=== PATIENT | male | born 1940 | race Caucasian/White ===

== ENCOUNTER 2018-08-08 12:45 | Emergency (ER) | payer MEDICARE, OTHER ==
[~2018-08-08] VITALS: Ht 188 cm; Wt 89.4 kg
--- NOTE | 2018-08-08 13:00 | NUR ---
patient presented to the ER c/o irregular heart rated, on room air, denies any pain at this time. Kept comfortable, will continue to monitor accordingly. Connected to the monitor and pulse ox.
[2018-08-08] MEDS ORDERED: ASPIRIN 325 MG TABLET ONE (13:08)
[2018-08-08 13:09] LABS: BASOPHILS # (AUTO) 0.1 /CMM (0.0-0.2); BASOPHILS % (AUTO) 0.9 % (0.0-2.0); EOSINOPHILS % (AUTO) 2.1 % (0.0-6.0); HEMATOCRIT 43 % (39-51); HEMOGLOBIN 14.7 g/dL (13.5-17.5); LYMPHOCYTES # (AUTO) 1.6 /CMM (0.8-4.8); MEAN CORPUSCULAR HGB CONC 35 g/dl (31.0-36.0); MEAN CORPUSCULAR VOLUME 97 fL (80-96); MONOCYTES # (AUTO) 0.6 /CMM (0.1-1.30); MONOCYTES % (AUTO) 10.1 % (2.0-12.0); NEUTROPHILS # (AUTO) 3.7 /CMM (1.8-8.9); NEUTROPHILS % (AUTO) 60.9 % (43.0-81.0); PLATELET COUNT (AUTO) 242 /CMM (150-450); RED BLOOD CELL COUNT(AUTO) 4.39 MIL/uL (4.5-6.0); WHITE BLOOD COUNT (AUTO) 6.1 K/uL (4.3-11.0)
--- NOTE | 2018-08-08 13:13 | NUR ---
CALLED [facility] FOR TELE BED
--- NOTE | 2018-08-08 13:15 | NUR ---
iv access initiated and blood drawed and sent to lab.
[2018-08-08 13:17] LABS: CALCIUM, SERUM 8.9 mg/dL (8.5-10.1); CARBON DIOXIDE 30 mmol/L (21-32); CHLORIDE 107 mmol/L (98-107); CREATININE 1.2 mg/dL (0.6-1.3); GLUCOSE 169 mg/dL (74-106); POTASSIUM 4.6 mmol/L (3.5-5.1); SODIUM SERUM 141 mmol/L (136-145); UREA NITROGEN, BLOOD 19 mg/dL (7-18)
[2018-08-08 13:23] LABS: ALANINE AMINOTRANSFERASE 40 U/L (12-78); ALBUMIN 3.8 g/dL (3.4-5.0); ALKALINE PHOSPHATASE 101 U/L (46-116); ASPARTATE AMINOTRANSFERASE 30 U/L (15-37); BILIRUBIN,DIRECT 0.2 mg/dL (0.0-0.2); TOTAL PROTEIN, SERUM 3.8 g/dL (6.4-8.2)
[2018-08-08] MEDS ORDERED: ASPIRIN 325 MG TABLET PO ONE (13:30)
[2018-08-08] MEDS ORDERED: IV NS 0.9% 1,000 ML BAG IV ONE (13:30)
[2018-08-08 14:26] VITALS: BP 135/81
--- NOTE | 2018-08-08 14:27 | NUR ---
Patient does not wish to proceed with medical care recommended by Dr. García. Patient given information related to possible complications, up to and including , which could occur as a result of leaving the hospital at this time. Patient verbalizes understanding of risks involved due to leaving against medical advice. Patient has signed AMA form.
== END 2018-08-08 14:27 | disposition left against medical advice (07) ==
LOC: ER 12:45
DX: I48.91 Unspecified atrial fibrillation (principal); I10 Essential (primary) hypertension; E78.5 Hyperlipidemia, unspecified; J45.909 Unspecified asthma, uncomplicated; E11.9 Type 2 diabetes mellitus without complications; Z85.46 Personal history of malignant neoplasm of prostate; Z88.8 Allergy status to other drugs, medicaments and biological substances; Z98.890 Other specified postprocedural states
CPT/HCPCS: 36415; 71045; 80048; 80076; 83735; 84484; 85025; 93005; 99284; J7030

== ENCOUNTER 2023-01-10 18:38 | Inpatient (IN) | payer MEDICARE, OTHER ==
[~2023-01-10] VITALS: Ht 188 cm; Wt 83.5 kg
[2023-01-10] MEDS ORDERED: DILTIAZEM HCL 25 MG IV ONE (19:20)
[2023-01-10] MEDS ORDERED: BUDE10.2 IH (19:22)
[2023-01-10] MEDS ORDERED: LATA5DRO EACHEYE (19:22)
[2023-01-10] MEDS ORDERED: ATOR20TA PO (19:22)
[2023-01-10] MEDS ORDERED: APIX5TAB PO (19:22)
[2023-01-10] MEDS ORDERED: MULT-1201 PO (19:22)
[2023-01-10] MEDS ORDERED: NETA2.5D EACHEYE (19:22)
[2023-01-10] MEDS ORDERED: AFLI2SYR LEFTEYE (19:22)
[2023-01-10] MEDS ORDERED: GLIP-16 PO (19:22)
[2023-01-10] MEDS ORDERED: [UNRECOGNIZED DRUG - OTHER] PO (19:22)
[2023-01-10] MEDS ORDERED: SODI15OR5 PO (19:22)
[2023-01-10] MEDS ORDERED: BRIM5DRO2 EACHEYE (19:22)
[2023-01-10] MEDS ORDERED: METO50TA7 PO (19:22)
[2023-01-10] MEDS ORDERED: MULT-479 PO (19:22)
[2023-01-10] MEDS ORDERED: RANO500T3 PO (19:22)
[2023-01-10] MEDS ORDERED: IV NS 0.9% 1,000 ML IV ONE (19:30)
[2023-01-10] MEDS ORDERED: DILTIAZEM HCL 50 MG IV IV ONE (19:30)
[2023-01-10 19:38] LABS: BASOPHILS % (AUTO) 0.6 % (0.0-2.0); HEMATOCRIT 46 % (39-51); HEMOGLOBIN 15.7 g/dL (13.5-17.5); MEAN CORPUSCULAR HEMOGLOBIN 34 PG (26.0-33.0); MEAN CORPUSCULAR HGB CONC 34 g/dl (31.0-36.0); MEAN CORPUSCULAR VOLUME 98 fL (80-96); MONOCYTES # (AUTO) 0.5 K/uL (0.1-1.30); MONOCYTES % (AUTO) 7.3 % (2.0-12.0); NEUTROPHILS # (AUTO) 5.2 K/uL (1.8-8.9); NEUTROPHILS % (AUTO) 77.1 % (43.0-81.0); PLATELET COUNT (AUTO) 120 K/uL (150-450); RED BLOOD CELL COUNT(AUTO) 4.68 MIL/uL (4.5-6.0); RED CELL DISTRIBUTION WIDTH 13.8 % (11.5-15.0); WHITE BLOOD COUNT (AUTO) 6.8 K/uL (4.3-11.0)
[2023-01-10 19:44] LABS: CALCIUM, SERUM 8.9 mg/dL (8.5-10.1); CARBON DIOXIDE 25 mmol/L (21-32); CHLORIDE 102 mmol/L (98-107); CREATININE 1.4 mg/dL (0.6-1.3); GLUCOSE 153 mg/dL (74-106); POTASSIUM 3.6 mmol/L (3.5-5.1); SODIUM SERUM 139 mmol/L (136-145); UREA NITROGEN, BLOOD 18 mg/dL (7-18)
[2023-01-10 19:56] LABS: ALANINE AMINOTRANSFERASE 42 U/L (12-78); ALBUMIN 3.9 g/dL (3.4-5.0); ALKALINE PHOSPHATASE 114 U/L (46-116); ASPARTATE AMINOTRANSFERASE 31 U/L (15-37); BILIRUBIN,DIRECT 0.3 mg/dL (0.0-0.2); BILIRUBIN,TOTAL 0.8 mg/dL (0.2-1.0); NT-PRO BNP 1418 pg/mL (0-125); TOTAL PROTEIN, SERUM 8.4 g/dL (6.4-8.2)
[2023-01-10] MEDS ORDERED: DILTIAZEM HCL 30 MG TABLET ONE (19:57)
[2023-01-10] MEDS ORDERED: DILTIAZEM HCL 30 MG TABLET PO ONE (20:00)
[2023-01-10] MEDS ORDERED: Z GUARD REMEDY 4 OZ OINT TP PRN (22:30)
[2023-01-10] MEDS ORDERED: DEXTROSE 50%-WATER 50 ML DISP.SYRIN IV PRN (22:30)
[2023-01-10] MEDS ORDERED: ONDANSETRON HCL/PF 4 MG/2 ML VIAL IVP PRN (22:30)
[2023-01-10] MEDS ORDERED: ACETAMINOPHEN 325 MG TABLET PO PRN (22:30)
[2023-01-10] MEDS ORDERED: IV 1/2NS 1000 ML 1,000 ML IV PRN (22:30)
[2023-01-10] MEDS ORDERED: IPRATROPIUM NEB FS 0.5 MG/2.5 ML AMPUL.NEB NEB PRN (23:00)
[2023-01-10] MEDS ORDERED: predniSONE 50 MG TABLET PO SCH (23:00)
[2023-01-11] VITALS (9 sets, daily range): BP systolic 101–167; BP diastolic 68–106; TEMP 97.6–100.6; O2SAT 92–99
[2023-01-11] MEDS ORDERED: LEVOFLOXACIN 750 MG /D5W 150ML 750 MG in PREMIX 1 EA IV ONE (02:00)
[2023-01-11] MEDS ORDERED: LEVOFLOXACIN 750 MG /D5W 150ML 150 ML IV ONE (04:01)
[2023-01-11 06:31] LABS: BASOPHILS % (AUTO) 0.5 % (0.0-2.0); HEMATOCRIT 45 % (39-51); HEMOGLOBIN 15.2 g/dL (13.5-17.5); LYMPHOCYTES # (AUTO) 1.1 K/uL (0.8-4.8); LYMPHOCYTES % (AUTO) 14.4 % (20.0-44.0); MEAN CORPUSCULAR HEMOGLOBIN 34 PG (26.0-33.0); MEAN CORPUSCULAR HGB CONC 34 g/dl (31.0-36.0); MEAN CORPUSCULAR VOLUME 99 fL (80-96); MONOCYTES # (AUTO) 0.4 K/uL (0.1-1.30); NEUTROPHILS # (AUTO) 5.9 K/uL (1.8-8.9); NEUTROPHILS % (AUTO) 79.1 % (43.0-81.0); PLATELET COUNT (AUTO) 102 K/uL (150-450); RED BLOOD CELL COUNT(AUTO) 4.55 MIL/uL (4.5-6.0); RED CELL DISTRIBUTION WIDTH 13.6 % (11.5-15.0); WHITE BLOOD COUNT (AUTO) 7.4 K/uL (4.3-11.0)
[2023-01-11] MEDS: BLOOD SUGAR DIAGNOSTIC 1 EACH STRIP IN SCH ×4 (06:33→22:57)
[2023-01-11] MEDS: INSULIN REGULAR, HUMAN 100 UNIT/ML 3 ML VIAL SQ PRN ×3 (06:35→22:59)
[2023-01-11 06:42] LABS: CALCIUM, SERUM 8.2 mg/dL (8.5-10.1); CREATININE 1.3 mg/dL (0.6-1.3); MAGNESIUM 1.9 mg/dL (1.8-2.4); PHOSPHORUS 3.2 mg/dL (2.5-4.9); POTASSIUM 3.6 mmol/L (3.5-5.1)
[2023-01-11] MEDS: BRIMONIDINE TARTRATE OPHT SOLN 5 ML BOTTLE EACHEYE SCH ×2 (09:46→21:45)
[2023-01-11] MEDS: TIMOLOL 0.5% SOLN OPHTH 5 ML BOTTLE EACHEYE SCH ×2 (09:47→21:46)
[2023-01-11] MEDS: METOPROLOL SUCCINATE 50 MG TAB.SR.24H PO SCH (09:48)
[2023-01-11] MEDS: RANOLAZINE 500 MG TAB.ER.12H PO SCH ×2 (09:48→17:20)
[2023-01-11] MEDS: PANTOPRAZOLE 40 MG TABLET.DR PO SCH (09:48)
[2023-01-11] MEDS: MULTIVITAMIN/LUTEIN/MINERALS 1 TAB PO SCH (09:49)
[2023-01-11] MEDS: MULTIVITAMINS,THERAGRAN 1 UDTAB TABLET PO SCH (09:49)
[2023-01-11] MEDS: predniSONE 20 MG TABLET PO SCH (09:49)
[2023-01-11] MEDS: APIXABAN 5 MG TABLET PO SCH ×2 (09:51→21:38)
[2023-01-11] MEDS ORDERED: AMIODARONE 150 MG in IV D5W 100 ML IV ONE (13:00)
[2023-01-11] MEDS ORDERED: AMIODARONE 450 MG in IV D5W 250 ML IV PRN (13:00)
[2023-01-11] MEDS: AMIODARONE 450 MG in IV D5W 241 ML IV PRN ×2 (15:42→23:30)
[2023-01-11] MEDS: ATORVASTATIN 10 MG TABLET PO SCH (17:20)
[2023-01-11] MEDS: LEVALBUTEROL HCL NEB 1.25 MG/0.5 ML VIAL.NEB NEB PRN (20:09)
[2023-01-11] MEDS: IPRATROPIUM NEB FS 0.5 MG/2.5 ML AMPUL.NEB NEB PRN (20:09)
[2023-01-11] MEDS: ACETYLCYSTEINE 10% SOLN 400 MG/4 ML VIAL NEB SCH (23:34)
[2023-01-12] VITALS (12 sets, daily range): BP systolic 110–132; BP diastolic 69–95; TEMP 97.5–97.9; O2SAT 94–100
[2023-01-12] MEDS: LEVOFLOXACIN 750 MG /D5W 150ML 750 MG in PREMIX 1 EA IV SCH (01:28)
[2023-01-12 06:57] LABS: BASOPHILS % (AUTO) 0.2 % (0.0-2.0); HEMATOCRIT 46 % (39-51); HEMOGLOBIN 15.5 g/dL (13.5-17.5); LYMPHOCYTES # (AUTO) 1.1 K/uL (0.8-4.8); LYMPHOCYTES % (AUTO) 17.1 % (20.0-44.0); MEAN CORPUSCULAR HEMOGLOBIN 34 PG (26.0-33.0); MEAN CORPUSCULAR HGB CONC 34 g/dl (31.0-36.0); MEAN CORPUSCULAR VOLUME 100 fL (80-96); MONOCYTES # (AUTO) 0.4 K/uL (0.1-1.30); MONOCYTES % (AUTO) 5.5 % (2.0-12.0); NEUTROPHILS % (AUTO) 77.2 % (43.0-81.0); PLATELET COUNT (AUTO) 80 K/uL (150-450); RED BLOOD CELL COUNT(AUTO) 4.61 MIL/uL (4.5-6.0); RED CELL DISTRIBUTION WIDTH 13.8 % (11.5-15.0); WHITE BLOOD COUNT (AUTO) 6.4 K/uL (4.3-11.0)
[2023-01-12 07:08] LABS: CALCIUM, SERUM 8.3 mg/dL (8.5-10.1); CARBON DIOXIDE 21 mmol/L (21-32); CHLORIDE 101 mmol/L (98-107); CREATININE 1.3 mg/dL (0.6-1.3); GLUCOSE 173 mg/dL (74-106); POTASSIUM 3.5 mmol/L (3.5-5.1); SODIUM SERUM 133 mmol/L (136-145); UREA NITROGEN, BLOOD 30 mg/dL (7-18)
[2023-01-12] MEDS: ACETYLCYSTEINE 10% SOLN 400 MG/4 ML VIAL NEB SCH ×3 (07:35→23:23)
[2023-01-12] MEDS: BLOOD SUGAR DIAGNOSTIC 1 EACH STRIP IN SCH ×4 (07:48→22:00)
[2023-01-12] MEDS: METOPROLOL SUCCINATE 50 MG TAB.SR.24H PO SCH (08:10)
[2023-01-12] MEDS: RANOLAZINE 500 MG TAB.ER.12H PO SCH ×2 (08:10→17:00)
[2023-01-12] MEDS: APIXABAN 5 MG TABLET PO SCH ×2 (08:11→21:00)
[2023-01-12] MEDS: PANTOPRAZOLE 40 MG TABLET.DR PO SCH (08:12)
[2023-01-12] MEDS: MULTIVITAMINS,THERAGRAN 1 UDTAB TABLET PO SCH (08:12)
[2023-01-12] MEDS: MULTIVITAMIN/LUTEIN/MINERALS 1 TAB PO SCH (08:12)
[2023-01-12] MEDS: predniSONE 20 MG TABLET PO SCH (08:13)
[2023-01-12] MEDS: TIMOLOL 0.5% SOLN OPHTH 5 ML BOTTLE EACHEYE SCH (09:00)
[2023-01-12] MEDS: BRIMONIDINE TARTRATE OPHT SOLN 5 ML BOTTLE EACHEYE SCH (09:00)
[2023-01-12] MEDS: INSULIN REGULAR, HUMAN 100 UNIT/ML 3 ML VIAL SQ PRN ×2 (12:39→17:11)
[2023-01-12 12:44] LABS: THYROID STIMULATING HORMONE 0.336 uIU/mL (0.358-3.74); URIC ACID 3.1 mg/dL (2.6-7.2)
[2023-01-12] MEDS: DIGOXIN INJ 0.5 MG/2 ML AMPUL IV SCH ×2 (12:44→18:07)
[2023-01-12] MEDS: ATORVASTATIN 10 MG TABLET PO SCH (17:12)
[2023-01-12] MEDS: IV D5/0.45 NACL 1,000 ML IV PRN (22:44)
[2023-01-13] VITALS (13 sets, daily range): BP systolic 84–140; BP diastolic 53–89; TEMP 97.5–102.4; O2SAT 95–100
[2023-01-13] MEDS: DIGOXIN INJ 0.5 MG/2 ML AMPUL IV SCH (00:15)
[2023-01-13] MEDS: LEVOFLOXACIN 750 MG /D5W 150ML 750 MG in PREMIX 1 EA IV SCH (01:47)
[2023-01-13 06:19] LABS: BASOPHILS % (AUTO) 0.1 % (0.0-2.0); HEMATOCRIT 43 % (39-51); HEMOGLOBIN 14.4 g/dL (13.5-17.5); LYMPHOCYTES # (AUTO) 0.7 K/uL (0.8-4.8); LYMPHOCYTES % (AUTO) 11.9 % (20.0-44.0); MEAN CORPUSCULAR HEMOGLOBIN 33 PG (26.0-33.0); MEAN CORPUSCULAR HGB CONC 34 g/dl (31.0-36.0); MEAN CORPUSCULAR VOLUME 98 fL (80-96); MONOCYTES # (AUTO) 0.3 K/uL (0.1-1.30); NEUTROPHILS # (AUTO) 4.6 K/uL (1.8-8.9); PLATELET COUNT (AUTO) 90 K/uL (150-450); RED BLOOD CELL COUNT(AUTO) 4.34 MIL/uL (4.5-6.0); RED CELL DISTRIBUTION WIDTH 13.7 % (11.5-15.0); WHITE BLOOD COUNT (AUTO) 5.7 K/uL (4.3-11.0)
[2023-01-13 06:33] LABS: ALANINE AMINOTRANSFERASE 35 U/L (12-78); ALBUMIN 2.6 g/dL (3.4-5.0); ALKALINE PHOSPHATASE 81 U/L (46-116); ASPARTATE AMINOTRANSFERASE 36 U/L (15-37); CALCIUM, SERUM 8.7 mg/dL (8.5-10.1); CARBON DIOXIDE 31 mmol/L (21-32); CHLORIDE 103 mmol/L (98-107); CREATININE 1.4 mg/dL (0.6-1.3); GLUCOSE 210 mg/dL (74-106); MAGNESIUM 2.5 mg/dL (1.8-2.4); POTASSIUM 3.5 mmol/L (3.5-5.1); SODIUM SERUM 140 mmol/L (136-145); UREA NITROGEN, BLOOD 38 mg/dL (7-18)
[2023-01-13] MEDS: PANTOPRAZOLE 40 MG TABLET.DR PO SCH (07:30)
[2023-01-13] MEDS: ACETYLCYSTEINE 10% SOLN 400 MG/4 ML VIAL NEB SCH ×3 (07:35→23:40)
[2023-01-13] MEDS ORDERED: DIGOXIN 0.125 MG TABLET PO ONE (08:30)
[2023-01-13] MEDS: METOPROLOL SUCCINATE 50 MG TAB.SR.24H PO SCH (09:00)
[2023-01-13] MEDS: MULTIVITAMIN/LUTEIN/MINERALS 1 TAB PO SCH (09:00)
[2023-01-13] MEDS: MULTIVITAMINS,THERAGRAN 1 UDTAB TABLET PO SCH (09:00)
[2023-01-13] MEDS: RANOLAZINE 500 MG TAB.ER.12H PO SCH ×2 (09:00→18:46)
[2023-01-13] MEDS: APIXABAN 5 MG TABLET PO SCH (09:00)
[2023-01-13] MEDS: predniSONE 20 MG TABLET PO SCH (09:00)
[2023-01-13] MEDS: BLOOD SUGAR DIAGNOSTIC 1 EACH STRIP IN SCH ×4 (09:16→21:42)
[2023-01-13] MEDS: INSULIN REGULAR, HUMAN 100 UNIT/ML 3 ML VIAL SQ PRN ×4 (09:36→21:46)
[2023-01-13 11:53] LABS: ANISOCYTOSIS 1+; BASOPHILS % (MANUAL) 0 % (0.0-2.0); EOSINOPHILS % (MANUAL) 0 % (0-4); LYMPHOCYTES % (MANUAL) 9 % (16-48); MONOCYTES % (MANUAL) 6 % (0-11.0); NEUTROPHILS % (MANUAL) 85 (42-76); PLATELET ESTIMATE DECREASED
[2023-01-13 12:06] LABS: THYROID STIMULATING HORMONE 0.328 uIU/mL (0.358-3.74)
[2023-01-13] MEDS ORDERED: GLUCERNA 1.2 1,000 ML BOTTLE NG PRN (14:00)
[2023-01-13] MEDS ORDERED: ACETAMINOPHEN 650 MG/20.3 ML UDC GT PRN (14:30)
[2023-01-13] MEDS ORDERED: Sodium Phosphate 15 MMOL in IV NS 0.9% 245 ML IV SCH (16:00)
[2023-01-13] MEDS: ATORVASTATIN 10 MG TABLET GT SCH (18:46)
[2023-01-13] MEDS: GLUCERNA 1.2 1,000 ML BOTTLE GT SCH (18:50)
[2023-01-13] MEDS: LATANOPROSTENE BUNOD EACHEYE SCH (18:53)
[2023-01-13] MEDS: NETARSUDIL MESYLATE EACHEYE SCH (18:54)
[2023-01-13] MEDS: ENOXAPARIN SODIUM 100 MG/ML DISP.SYRIN SQ SCH (21:23)
[2023-01-13] MEDS: IPRATROPIUM NEB FS 0.5 MG/2.5 ML AMPUL.NEB NEB PRN (23:40)
[2023-01-14] VITALS (12 sets, daily range): BP systolic 117–156; BP diastolic 71–86; TEMP 97.5–98.4; O2SAT 95–100
[2023-01-14] MEDS: LEVOFLOXACIN 750 MG /D5W 150ML 750 MG in PREMIX 1 EA IV SCH (01:54)
[2023-01-14] MEDS: BLOOD SUGAR DIAGNOSTIC 1 EACH STRIP IN SCH ×4 (06:34→22:17)
[2023-01-14] MEDS: INSULIN REGULAR, HUMAN 100 UNIT/ML 3 ML VIAL SQ PRN ×4 (06:37→22:23)
[2023-01-14 07:07] LABS: CARBON DIOXIDE 29 mmol/L (21-32); CHLORIDE 104 mmol/L (98-107); CREATININE 1.2 mg/dL (0.6-1.3); GLUCOSE 216 mg/dL (74-106); MAGNESIUM 2.5 mg/dL (1.8-2.4); PHOSPHORUS 1.8 mg/dL (2.5-4.9); POTASSIUM 3.2 mmol/L (3.5-5.1); SODIUM SERUM 143 mmol/L (136-145); UREA NITROGEN, BLOOD 33 mg/dL (7-18)
[2023-01-14] MEDS: ACETYLCYSTEINE 10% SOLN 400 MG/4 ML VIAL NEB SCH ×3 (07:33→23:39)
[2023-01-14] MEDS: LEVALBUTEROL HCL NEB 1.25 MG/0.5 ML VIAL.NEB NEB PRN ×2 (07:34→13:59)
[2023-01-14] MEDS: MULTIVITAMINS,THERAGRAN 1 UDTAB TABLET GT SCH (08:13)
[2023-01-14] MEDS: PANTOPRAZOLE 40 MG/PACK PACK GT SCH (08:13)
[2023-01-14] MEDS: RANOLAZINE 500 MG TAB.ER.12H PO SCH ×2 (08:13→17:00)
[2023-01-14] MEDS: predniSONE 20 MG TABLET GT SCH (08:16)
[2023-01-14] MEDS: MULTIVITAMIN/LUTEIN/MINERALS 1 TAB GT SCH (08:18)
[2023-01-14] MEDS: ENOXAPARIN SODIUM 100 MG/ML DISP.SYRIN SQ SCH (08:21)
[2023-01-14] MEDS: METOPROLOL SUCCINATE 50 MG TAB.SR.24H PO SCH (08:34)
[2023-01-14] MEDS: POTASSIUM CL. PREMIX PERIPHER. 50 ML IV SCH ×4 (10:04→14:30)
[2023-01-14] MEDS: POTASSIUM PHOSPHATE MM 7.5 MMOL in IV NS 0.9% 100 ML IV SCH ×2 (10:42→14:25)
[2023-01-14] MEDS: IPRATROPIUM NEB FS 0.5 MG/2.5 ML AMPUL.NEB NEB PRN ×2 (13:59→23:39)
[2023-01-14] MEDS: NETARSUDIL MESYLATE EACHEYE SCH (18:04)
[2023-01-14] MEDS: ATORVASTATIN 10 MG TABLET GT SCH (18:04)
[2023-01-14] MEDS: LATANOPROSTENE BUNOD EACHEYE SCH (18:04)
[2023-01-14] MEDS: APIXABAN 5 MG TABLET NG SCH (21:49)
[2023-01-15] VITALS (12 sets, daily range): BP systolic 117–149; BP diastolic 66–86; TEMP 97.3–98.4; O2SAT 12–100
[2023-01-15] MEDS: GLUCERNA 1.2 1,000 ML BOTTLE GT SCH ×2 (01:02→19:40)
[2023-01-15] MEDS: LEVOFLOXACIN (250MG) 250 MG TABLET PO SCH (02:15)
[2023-01-15] MEDS: IV D5/0.45 NACL 1,000 ML IV PRN ×2 (02:58→19:41)
[2023-01-15 06:18] LABS: HEMATOCRIT 43 % (39-51); HEMOGLOBIN 14.2 g/dL (13.5-17.5); LYMPHOCYTES # (AUTO) 0.8 K/uL (0.8-4.8); LYMPHOCYTES % (AUTO) 7.4 % (20.0-44.0); MEAN CORPUSCULAR HEMOGLOBIN 33 PG (26.0-33.0); MEAN CORPUSCULAR HGB CONC 33 g/dl (31.0-36.0); MEAN CORPUSCULAR VOLUME 99 fL (80-96); MONOCYTES # (AUTO) 0.8 K/uL (0.1-1.30); MONOCYTES % (AUTO) 7.8 % (2.0-12.0); NEUTROPHILS # (AUTO) 8.8 K/uL (1.8-8.9); NEUTROPHILS % (AUTO) 84.8 % (43.0-81.0); PLATELET COUNT (AUTO) 116 K/uL (150-450); RED BLOOD CELL COUNT(AUTO) 4.31 MIL/uL (4.5-6.0); RED CELL DISTRIBUTION WIDTH 13.7 % (11.5-15.0); WHITE BLOOD COUNT (AUTO) 10.4 K/uL (4.3-11.0)
[2023-01-15] MEDS: BLOOD SUGAR DIAGNOSTIC 1 EACH STRIP IN SCH ×4 (06:32→22:18)
[2023-01-15] MEDS: INSULIN REGULAR, HUMAN 100 UNIT/ML 3 ML VIAL SQ PRN ×4 (06:40→22:17)
[2023-01-15 06:41] LABS: ALBUMIN 2.4 g/dL (3.4-5.0); CREATININE 1.1 mg/dL (0.6-1.3); MAGNESIUM 2.5 mg/dL (1.8-2.4); PHOSPHORUS 2.9 mg/dL (2.5-4.9); POTASSIUM 3.5 mmol/L (3.5-5.1); TOTAL PROTEIN, SERUM 6.6 g/dL (6.4-8.2)
[2023-01-15] MEDS: ACETYLCYSTEINE 10% SOLN 400 MG/4 ML VIAL NEB SCH ×2 (08:12→17:24)
[2023-01-15] MEDS: PANTOPRAZOLE 40 MG/PACK PACK GT SCH (08:13)
[2023-01-15] MEDS: RANOLAZINE 500 MG TAB.ER.12H PO SCH ×2 (09:00→17:33)
[2023-01-15] MEDS: MULTIVITAMINS,THERAGRAN 1 UDTAB TABLET GT SCH (09:01)
[2023-01-15] MEDS: predniSONE 20 MG TABLET GT SCH (09:01)
[2023-01-15] MEDS: MULTIVITAMIN/LUTEIN/MINERALS 1 TAB GT SCH (09:01)
[2023-01-15] MEDS: APIXABAN 5 MG TABLET NG SCH (09:04)
[2023-01-15] MEDS: METOPROLOL TARTRATE 50 MG TABLET NG SCH ×2 (12:56→17:42)
[2023-01-15] MEDS: ATORVASTATIN 10 MG TABLET GT SCH (17:34)
[2023-01-15] MEDS: LATANOPROSTENE BUNOD EACHEYE SCH (17:46)
[2023-01-15] MEDS: NETARSUDIL MESYLATE EACHEYE SCH (17:46)
[2023-01-15] MEDS: TAMSULOSIN 0.4 MG CAP.SR.24H PO SCH (21:58)
[2023-01-16] VITALS (10 sets, daily range): BP systolic 120–142; BP diastolic 69–84; TEMP 97.7–98.8; O2SAT 94–98
[2023-01-16] MEDS ORDERED: MORPHINE SULFATE INJ 2 MG/ML DISP.SYRIN IV PRN
[2023-01-16] MEDS ORDERED: MAG HYDROX/AL HYDROX/SIMETH 30 ML UDC PO PRN
[2023-01-16] MEDS: METOPROLOL TARTRATE 50 MG TABLET NG SCH ×5 (00:30→23:27)
[2023-01-16] MEDS: LEVOFLOXACIN (250MG) 250 MG TABLET PO SCH (01:26)
[2023-01-16] MEDS: ACETYLCYSTEINE 10% SOLN 400 MG/4 ML VIAL NEB SCH ×3 (02:28→16:16)
[2023-01-16 05:47] LABS: BASOPHILS % (AUTO) 0.3 % (0.0-2.0); EOSINOPHILS % (AUTO) 0.4 % (0.0-6.0); HEMATOCRIT 41 % (39-51); HEMOGLOBIN 13.7 g/dL (13.5-17.5); LYMPHOCYTES % (AUTO) 9.1 % (20.0-44.0); MEAN CORPUSCULAR HEMOGLOBIN 33 PG (26.0-33.0); MEAN CORPUSCULAR HGB CONC 34 g/dl (31.0-36.0); MEAN CORPUSCULAR VOLUME 98 fL (80-96); MONOCYTES # (AUTO) 0.7 K/uL (0.1-1.30); MONOCYTES % (AUTO) 6.5 % (2.0-12.0); NEUTROPHILS # (AUTO) 9.1 K/uL (1.8-8.9); NEUTROPHILS % (AUTO) 83.7 % (43.0-81.0); PLATELET COUNT (AUTO) 182 K/uL (150-450); RED BLOOD CELL COUNT(AUTO) 4.18 MIL/uL (4.5-6.0); RED CELL DISTRIBUTION WIDTH 13.1 % (11.5-15.0); WHITE BLOOD COUNT (AUTO) 10.9 K/uL (4.3-11.0)
[2023-01-16 06:02] LABS: INR 1.24 (0.91-1.10); PARTIAL THROMBOPLASTIN TIME 23.5 SEC (24.3-34.3); PROTHROMBIN TIME 12.9 SECS (9.2-11.1)
[2023-01-16 06:05] LABS: CALCIUM, SERUM 8.7 mg/dL (8.5-10.1); CARBON DIOXIDE 30 mmol/L (21-32); CHLORIDE 104 mmol/L (98-107); CREATININE 1.1 mg/dL (0.6-1.3); GLUCOSE 201 mg/dL (74-106); POTASSIUM 3.9 mmol/L (3.5-5.1); SODIUM SERUM 140 mmol/L (136-145); UREA NITROGEN, BLOOD 27 mg/dL (7-18)
[2023-01-16] MEDS: PANTOPRAZOLE 40 MG/PACK PACK GT SCH ×2 (07:30→08:54)
[2023-01-16] MEDS: MULTIVITAMINS,THERAGRAN 1 UDTAB TABLET GT SCH ×2 (08:54→09:00)
[2023-01-16] MEDS: predniSONE 20 MG TABLET GT SCH (08:54)
[2023-01-16] MEDS: MULTIVITAMIN/LUTEIN/MINERALS 1 TAB GT SCH ×2 (08:54→09:00)
[2023-01-16] MEDS: RANOLAZINE 500 MG TAB.ER.12H PO SCH ×2 (08:55→17:00)
[2023-01-16] MEDS: BLOOD SUGAR DIAGNOSTIC 1 EACH STRIP IN SCH ×4 (09:14→21:52)
[2023-01-16] MEDS: INSULIN REGULAR, HUMAN 100 UNIT/ML 3 ML VIAL SQ PRN ×4 (09:25→22:03)
[2023-01-16] MEDS: IV D5/0.45 NACL 1,000 ML IV PRN (12:56)
[2023-01-16] MEDS: NETARSUDIL MESYLATE EACHEYE SCH (17:58)
[2023-01-16] MEDS: LATANOPROSTENE BUNOD EACHEYE SCH (17:58)
[2023-01-16] MEDS: ATORVASTATIN 10 MG TABLET GT SCH (18:11)
[2023-01-16] MEDS: TAMSULOSIN 0.4 MG CAP.SR.24H PO SCH (21:53)
[2023-01-17] VITALS (14 sets, daily range): BP systolic 120–143; BP diastolic 74–88; TEMP 97.3–98.4; O2SAT 91–99
[2023-01-17] MEDS: ACETYLCYSTEINE 10% SOLN 400 MG/4 ML VIAL NEB SCH ×4 (00:12→23:30)
[2023-01-17] MEDS: IV D5/0.45 NACL 1,000 ML IV PRN ×2 (00:16→18:27)
[2023-01-17] MEDS: LEVOFLOXACIN (250MG) 250 MG TABLET PO SCH (01:27)
[2023-01-17] MEDS: METOPROLOL TARTRATE 50 MG TABLET NG SCH ×3 (05:19→18:30)
[2023-01-17 06:17] LABS: BASOPHILS # (AUTO) 0.1 K/uL (0.0-0.2); BASOPHILS % (AUTO) 0.5 % (0.0-2.0); EOSINOPHILS % (AUTO) 0.3 % (0.0-6.0); HEMATOCRIT 43 % (39-51); HEMOGLOBIN 13.8 g/dL (13.5-17.5); LYMPHOCYTES % (AUTO) 8.9 % (20.0-44.0); MEAN CORPUSCULAR HEMOGLOBIN 33 PG (26.0-33.0); MEAN CORPUSCULAR HGB CONC 33 g/dl (31.0-36.0); MEAN CORPUSCULAR VOLUME 101 fL (80-96); MONOCYTES # (AUTO) 0.9 K/uL (0.1-1.30); MONOCYTES % (AUTO) 8.2 % (2.0-12.0); NEUTROPHILS # (AUTO) 9.4 K/uL (1.8-8.9); NEUTROPHILS % (AUTO) 82.1 % (43.0-81.0); PLATELET COUNT (AUTO) 162 K/uL (150-450); RED BLOOD CELL COUNT(AUTO) 4.22 MIL/uL (4.5-6.0); RED CELL DISTRIBUTION WIDTH 13.8 % (11.5-15.0); WHITE BLOOD COUNT (AUTO) 11.5 K/uL (4.3-11.0)
[2023-01-17 06:29] LABS: CALCIUM, SERUM 8.1 mg/dL (8.5-10.1); CARBON DIOXIDE 26 mmol/L (21-32); CHLORIDE 103 mmol/L (98-107); GLUCOSE 228 mg/dL (74-106); MAGNESIUM 2.5 mg/dL (1.8-2.4); PHOSPHORUS 3.2 mg/dL (2.5-4.9); POTASSIUM 4.3 mmol/L (3.5-5.1); SODIUM SERUM 136 mmol/L (136-145); UREA NITROGEN, BLOOD 26 mg/dL (7-18)
[2023-01-17] MEDS: PANTOPRAZOLE 40 MG/PACK PACK GT SCH ×2 (07:30→08:26)
[2023-01-17] MEDS: predniSONE 20 MG TABLET GT SCH (08:26)
[2023-01-17] MEDS: BLOOD SUGAR DIAGNOSTIC 1 EACH STRIP IN SCH ×4 (08:34→22:01)
[2023-01-17] MEDS: INSULIN REGULAR, HUMAN 100 UNIT/ML 3 ML VIAL SQ PRN ×4 (08:55→21:59)
[2023-01-17] MEDS: MULTIVITAMIN/LUTEIN/MINERALS 1 TAB GT SCH (09:00)
[2023-01-17] MEDS: MULTIVITAMINS,THERAGRAN 1 UDTAB TABLET GT SCH (09:00)
[2023-01-17] MEDS: RANOLAZINE 500 MG TAB.ER.12H PO SCH ×2 (09:00→17:00)
[2023-01-17] MEDS ORDERED: ANESTHESIA TRAY IN PYXIS 1 EA TRAY MC ONE (10:21)
[2023-01-17] MEDS ORDERED: GADOTERATE MEGLUMINE 10 MMOL/20 ML VIAL IV ONE (14:34)
[2023-01-17] MEDS: LATANOPROSTENE BUNOD EACHEYE SCH (18:28)
[2023-01-17] MEDS: NETARSUDIL MESYLATE EACHEYE SCH (18:28)
[2023-01-17] MEDS: ATORVASTATIN 10 MG TABLET GT SCH (18:29)
[2023-01-17] MEDS: TAMSULOSIN 0.4 MG CAP.SR.24H PO SCH (22:00)
[2023-01-18] VITALS (12 sets, daily range): BP systolic 116–139; BP diastolic 63–90; TEMP 97.5–97.9; O2SAT 93–100
[2023-01-18] MEDS: ACETYLCYSTEINE 10% SOLN 400 MG/4 ML VIAL NEB SCH ×4 (01:54→23:23)
[2023-01-18] MEDS: LEVOFLOXACIN (250MG) 250 MG TABLET PO SCH (02:00)
[2023-01-18] MEDS: METOPROLOL TARTRATE 50 MG TABLET NG SCH ×4 (06:00→17:28)
[2023-01-18 06:27] LABS: BASOPHILS % (AUTO) 0.2 % (0.0-2.0); EOSINOPHILS % (AUTO) 0.2 % (0.0-6.0); HEMATOCRIT 39 % (39-51); HEMOGLOBIN 13.2 g/dL (13.5-17.5); MEAN CORPUSCULAR HEMOGLOBIN 32 PG (26.0-33.0); MEAN CORPUSCULAR HGB CONC 33 g/dl (31.0-36.0); MEAN CORPUSCULAR VOLUME 97 fL (80-96); MONOCYTES # (AUTO) 0.6 K/uL (0.1-1.30); MONOCYTES % (AUTO) 4.6 % (2.0-12.0); NEUTROPHILS # (AUTO) 11.4 K/uL (1.8-8.9); PLATELET COUNT (AUTO) 239 K/uL (150-450); RED BLOOD CELL COUNT(AUTO) 4.06 MIL/uL (4.5-6.0); RED CELL DISTRIBUTION WIDTH 13.3 % (11.5-15.0); WHITE BLOOD COUNT (AUTO) 13.1 K/uL (4.3-11.0)
[2023-01-18 06:57] LABS: CALCIUM, SERUM 8.3 mg/dL (8.5-10.1); CARBON DIOXIDE 27 mmol/L (21-32); CHLORIDE 104 mmol/L (98-107); CREATININE 0.9 mg/dL (0.6-1.3); GLUCOSE 248 mg/dL (74-106); POTASSIUM 3.9 mmol/L (3.5-5.1); SODIUM SERUM 139 mmol/L (136-145); UREA NITROGEN, BLOOD 25 mg/dL (7-18)
[2023-01-18] MEDS: RANOLAZINE 500 MG TAB.ER.12H PO SCH ×2 (09:00→17:00)
[2023-01-18] MEDS: predniSONE 20 MG TABLET GT SCH (09:16)
[2023-01-18] MEDS: MULTIVITAMIN/LUTEIN/MINERALS 1 TAB GT SCH (09:16)
[2023-01-18] MEDS: PANTOPRAZOLE 40 MG/PACK PACK GT SCH (09:18)
[2023-01-18] MEDS: MULTIVITAMINS,THERAGRAN 1 UDTAB TABLET GT SCH (09:18)
[2023-01-18] MEDS: INSULIN REGULAR, HUMAN 100 UNIT/ML 3 ML VIAL SQ PRN ×4 (09:19→23:28)
[2023-01-18] MEDS: BLOOD SUGAR DIAGNOSTIC 1 EACH STRIP IN SCH ×4 (09:40→22:00)
[2023-01-18] MEDS: IV D5/0.45 NACL 1,000 ML IV PRN (12:09)
[2023-01-18 13:29] LABS: INR 1.32 (0.91-1.10); PARTIAL THROMBOPLASTIN TIME 26.5 SEC (24.3-34.3); PROTHROMBIN TIME 13.6 SECS (9.2-11.1)
[2023-01-18] MEDS ORDERED: HEPARIN SODIUM, PORCINE 1,000 UNIT/ML VIAL IV ONE (14:00)
[2023-01-18] MEDS ORDERED: HEPARIN SODIUM, PORCINE 5000 UNITS/1 ML VIAL IV ONE (14:30)
[2023-01-18] MEDS: HEPARIN INFUSION/D5W 500 ML IV PRN (14:46)
[2023-01-18] MEDS: NETARSUDIL MESYLATE EACHEYE SCH (17:26)
[2023-01-18] MEDS: LATANOPROSTENE BUNOD EACHEYE SCH (17:26)
[2023-01-18] MEDS: ATORVASTATIN 10 MG TABLET GT SCH (17:27)
[2023-01-19] VITALS (10 sets, daily range): BP systolic 105–137; BP diastolic 67–82; TEMP 97.5–98.4; O2SAT 95–100
[2023-01-19] MEDS: TAMSULOSIN 0.4 MG CAP.SR.24H PO SCH ×2 (00:21→22:53)
[2023-01-19] MEDS: METOPROLOL TARTRATE 50 MG TABLET NG SCH ×4 (01:03→17:13)
[2023-01-19] MEDS: LEVOFLOXACIN (250MG) 250 MG TABLET PO SCH (02:14)
[2023-01-19] MEDS: IV D5/0.45 NACL 1,000 ML IV PRN ×2 (02:54→20:17)
[2023-01-19 06:15] LABS: BASOPHILS % (AUTO) 0.1 % (0.0-2.0); EOSINOPHILS % (AUTO) 0.3 % (0.0-6.0); HEMATOCRIT 42 % (39-51); HEMOGLOBIN 13.7 g/dL (13.5-17.5); LYMPHOCYTES % (AUTO) 5.9 % (20.0-44.0); MEAN CORPUSCULAR HEMOGLOBIN 32 PG (26.0-33.0); MEAN CORPUSCULAR HGB CONC 33 g/dl (31.0-36.0); MEAN CORPUSCULAR VOLUME 98 fL (80-96); MONOCYTES # (AUTO) 0.5 K/uL (0.1-1.30); NEUTROPHILS # (AUTO) 15.6 K/uL (1.8-8.9); NEUTROPHILS % (AUTO) 90.7 % (43.0-81.0); PLATELET COUNT (AUTO) 278 K/uL (150-450); RED BLOOD CELL COUNT(AUTO) 4.24 MIL/uL (4.5-6.0); WHITE BLOOD COUNT (AUTO) 17.2 K/uL (4.3-11.0)
[2023-01-19 06:45] LABS: INR 1.36 (0.91-1.10); PARTIAL THROMBOPLASTIN TIME 68.9 SEC (24.3-34.3)
[2023-01-19 06:48] LABS: CALCIUM, SERUM 8.3 mg/dL (8.5-10.1); CARBON DIOXIDE 27 mmol/L (21-32); CHLORIDE 104 mmol/L (98-107); CREATININE 1.1 mg/dL (0.6-1.3); GLUCOSE 186 mg/dL (74-106); MAGNESIUM 2.4 mg/dL (1.8-2.4); PHOSPHORUS 2.8 mg/dL (2.5-4.9); POTASSIUM 3.6 mmol/L (3.5-5.1); SODIUM SERUM 137 mmol/L (136-145); UREA NITROGEN, BLOOD 21 mg/dL (7-18)
[2023-01-19] MEDS: MULTIVITAMINS,THERAGRAN 1 UDTAB TABLET GT SCH (08:08)
[2023-01-19] MEDS: RANOLAZINE 500 MG TAB.ER.12H PO SCH ×2 (08:08→17:12)
[2023-01-19] MEDS: predniSONE 20 MG TABLET GT SCH (08:08)
[2023-01-19] MEDS: PANTOPRAZOLE 40 MG/PACK PACK GT SCH (08:09)
[2023-01-19] MEDS: MULTIVITAMIN/LUTEIN/MINERALS 1 TAB GT SCH (08:09)
[2023-01-19] MEDS: INSULIN REGULAR, HUMAN 100 UNIT/ML 3 ML VIAL SQ PRN ×4 (08:10→22:54)
[2023-01-19] MEDS: BLOOD SUGAR DIAGNOSTIC 1 EACH STRIP IN SCH ×4 (08:11→22:51)
[2023-01-19] MEDS: ACETYLCYSTEINE 10% SOLN 400 MG/4 ML VIAL NEB SCH ×2 (08:20→15:28)
[2023-01-19] MEDS: HEPARIN INFUSION/D5W 500 ML IV PRN (10:28)
[2023-01-19] MEDS: ATORVASTATIN 10 MG TABLET GT SCH (17:12)
[2023-01-19] MEDS: LATANOPROSTENE BUNOD EACHEYE SCH (18:00)
[2023-01-19] MEDS: NETARSUDIL MESYLATE EACHEYE SCH (18:00)
[2023-01-20] VITALS (12 sets, daily range): BP systolic 106–156; BP diastolic 59–88; TEMP 97.4–97.9; O2SAT 93–100
[2023-01-20] MEDS: IPRATROPIUM NEB FS 0.5 MG/2.5 ML AMPUL.NEB NEB PRN ×4 (00:44→23:39)
[2023-01-20] MEDS: ACETYLCYSTEINE 10% SOLN 400 MG/4 ML VIAL NEB SCH ×4 (00:44→23:39)
[2023-01-20] MEDS: METOPROLOL TARTRATE 50 MG TABLET NG SCH ×4 (00:54→20:15)
[2023-01-20] MEDS: LEVOFLOXACIN (250MG) 250 MG TABLET PO SCH (02:15)
[2023-01-20 06:23] LABS: BASOPHILS # (AUTO) 0.1 K/uL (0.0-0.2); BASOPHILS % (AUTO) 0.6 % (0.0-2.0); EOSINOPHILS % (AUTO) 0.2 % (0.0-6.0); HEMATOCRIT 34 % (39-51); LYMPHOCYTES % (AUTO) 4.5 % (20.0-44.0); MEAN CORPUSCULAR HEMOGLOBIN 33 PG (26.0-33.0); MEAN CORPUSCULAR HGB CONC 33 g/dl (31.0-36.0); MEAN CORPUSCULAR VOLUME 100 fL (80-96); MONOCYTES # (AUTO) 0.5 K/uL (0.1-1.30); MONOCYTES % (AUTO) 2.1 % (2.0-12.0); NEUTROPHILS # (AUTO) 20.1 K/uL (1.8-8.9); NEUTROPHILS % (AUTO) 92.6 % (43.0-81.0); PLATELET COUNT (AUTO) 188 K/uL (150-450); RED BLOOD CELL COUNT(AUTO) 3.36 MIL/uL (4.5-6.0); RED CELL DISTRIBUTION WIDTH 13.1 % (11.5-15.0); WHITE BLOOD COUNT (AUTO) 21.8 K/uL (4.3-11.0)
[2023-01-20] MEDS: BLOOD SUGAR DIAGNOSTIC 1 EACH STRIP IN SCH ×4 (07:20→21:53)
[2023-01-20] MEDS: INSULIN REGULAR, HUMAN 100 UNIT/ML 3 ML VIAL SQ PRN ×3 (07:32→21:56)
[2023-01-20] MEDS: HEPARIN INFUSION/D5W 500 ML IV PRN (07:46)
[2023-01-20 09:21] LABS: CALCIUM, SERUM 7.6 mg/dL (8.5-10.1); MAGNESIUM 2.3 mg/dL (1.8-2.4); PHOSPHORUS 3.2 mg/dL (2.5-4.9); POTASSIUM 3.9 mmol/L (3.5-5.1)
[2023-01-20] MEDS: predniSONE 20 MG TABLET GT SCH (10:10)
[2023-01-20] MEDS: RANOLAZINE 500 MG TAB.ER.12H PO SCH ×2 (10:11→17:00)
[2023-01-20] MEDS: PANTOPRAZOLE 40 MG/PACK PACK GT SCH (10:11)
[2023-01-20] MEDS: MULTIVITAMINS,THERAGRAN 1 UDTAB TABLET GT SCH (10:13)
[2023-01-20] MEDS: MULTIVITAMIN/LUTEIN/MINERALS 1 TAB GT SCH (10:14)
[2023-01-20] MEDS: IV D5/0.45 NACL 1,000 ML IV PRN (12:36)
[2023-01-20] MEDS ORDERED: DIGOXIN INJ 0.5 MG/2 ML AMPUL IV ONE ×2 (16:30→18:00)
[2023-01-20] MEDS: ATORVASTATIN 10 MG TABLET GT SCH (18:00)
[2023-01-20] MEDS ORDERED: METOPROLOL TARTRATE INJ 5 MG/5 ML AMPUL ONE (19:23)
[2023-01-20] MEDS ORDERED: APIXABAN 5 MG TABLET PO ONE (21:00)
[2023-01-20] MEDS: LATANOPROSTENE BUNOD EACHEYE SCH (21:29)
[2023-01-20] MEDS: NETARSUDIL MESYLATE EACHEYE SCH (21:30)
[2023-01-20] MEDS: TAMSULOSIN 0.4 MG CAP.SR.24H PO SCH (21:31)
[2023-01-20] MEDS: LEVALBUTEROL HCL NEB 1.25 MG/0.5 ML VIAL.NEB NEB PRN (23:39)
[2023-01-21] VITALS (11 sets, daily range): BP systolic 109–135; BP diastolic 60–72; TEMP 97.4–99.1; O2SAT 82–100
[2023-01-21] MEDS: METOPROLOL TARTRATE 50 MG TABLET NG SCH ×4 (00:45→17:05)
[2023-01-21] MEDS: LEVOFLOXACIN (250MG) 250 MG TABLET PO SCH (01:44)
[2023-01-21] MEDS: IV D5/0.45 NACL 1,000 ML IV PRN (05:49)
[2023-01-21] MEDS: IPRATROPIUM NEB FS 0.5 MG/2.5 ML AMPUL.NEB NEB PRN ×2 (07:43→15:04)
[2023-01-21] MEDS: ACETYLCYSTEINE 10% SOLN 400 MG/4 ML VIAL NEB SCH ×2 (07:43→15:04)
[2023-01-21] MEDS: BLOOD SUGAR DIAGNOSTIC 1 EACH STRIP IN SCH ×4 (07:44→23:50)
[2023-01-21 07:45] LABS: BASOPHILS # (AUTO) 0.2 K/uL (0.0-0.2); BASOPHILS % (AUTO) 0.8 % (0.0-2.0); HEMATOCRIT 32 % (39-51); HEMOGLOBIN 10.7 g/dL (13.5-17.5); LYMPHOCYTES # (AUTO) 0.6 K/uL (0.8-4.8); LYMPHOCYTES % (AUTO) 2.5 % (20.0-44.0); MEAN CORPUSCULAR HEMOGLOBIN 33 PG (26.0-33.0); MEAN CORPUSCULAR HGB CONC 34 g/dl (31.0-36.0); MEAN CORPUSCULAR VOLUME 97 fL (80-96); MONOCYTES # (AUTO) 0.8 K/uL (0.1-1.30); MONOCYTES % (AUTO) 3.2 % (2.0-12.0); NEUTROPHILS # (AUTO) 22.8 K/uL (1.8-8.9); NEUTROPHILS % (AUTO) 93.5 % (43.0-81.0); PLATELET COUNT (AUTO) 265 K/uL (150-450); RED BLOOD CELL COUNT(AUTO) 3.26 MIL/uL (4.5-6.0); RED CELL DISTRIBUTION WIDTH 12.8 % (11.5-15.0); WHITE BLOOD COUNT (AUTO) 24.3 K/uL (4.3-11.0)
[2023-01-21] MEDS: PANTOPRAZOLE 40 MG/PACK PACK GT SCH (08:07)
[2023-01-21] MEDS: MULTIVITAMIN/LUTEIN/MINERALS 1 TAB GT SCH (08:07)
[2023-01-21] MEDS: MULTIVITAMINS,THERAGRAN 1 UDTAB TABLET GT SCH (08:07)
[2023-01-21] MEDS: predniSONE 20 MG TABLET GT SCH (08:07)
[2023-01-21] MEDS: RANOLAZINE 500 MG TAB.ER.12H PO SCH ×2 (08:08→17:04)
[2023-01-21] MEDS: APIXABAN 5 MG TABLET GT SCH ×2 (08:09→17:05)
[2023-01-21 08:17] LABS: CALCIUM, SERUM 7.6 mg/dL (8.5-10.1); CARBON DIOXIDE 25 mmol/L (21-32); CHLORIDE 102 mmol/L (98-107); CREATININE 1.1 mg/dL (0.6-1.3); GLUCOSE 271 mg/dL (74-106); MAGNESIUM 2.4 mg/dL (1.8-2.4); PHOSPHORUS 2.5 mg/dL (2.5-4.9); POTASSIUM 3.9 mmol/L (3.5-5.1); SODIUM SERUM 134 mmol/L (136-145); UREA NITROGEN, BLOOD 26 mg/dL (7-18)
[2023-01-21] MEDS: GLUCERNA 1.2 1,000 ML BOTTLE GT SCH (10:06)
[2023-01-21] MEDS ORDERED: pyRIDostigmine BROMIDE 60 MG TABLET PEG PRN ×2 (12:30→19:30)
[2023-01-21] MEDS: INSULIN REGULAR, HUMAN 100 UNIT/ML 3 ML VIAL SQ PRN ×3 (12:36→23:52)
[2023-01-21] MEDS ORDERED: pyRIDostigmine BROMIDE 60 MG TABLET PEG SCH (13:00)
[2023-01-21] MEDS ORDERED: GLYCOPYRROLATE 1 MG TABLET PO SCH (17:00)
[2023-01-21] MEDS: ATORVASTATIN 10 MG TABLET GT SCH (17:04)
[2023-01-21] MEDS: LATANOPROSTENE BUNOD EACHEYE SCH (17:27)
[2023-01-21] MEDS: NETARSUDIL MESYLATE EACHEYE SCH (17:27)
[2023-01-21] MEDS ORDERED: GLYCOPYRROLATE 1 MG TABLET PO PRN (19:00)
[2023-01-21] MEDS ORDERED: DEXTROSE 50%-WATER 50 ML DISP.SYRIN IV PRN (20:30)
[2023-01-21] MEDS: TAMSULOSIN 0.4 MG CAP.SR.24H PO SCH (21:56)
[2023-01-22] VITALS (13 sets, daily range): BP systolic 103–123; BP diastolic 52–69; TEMP 97.5–98.9; O2SAT 94–100
[2023-01-22] MEDS: LEVALBUTEROL HCL NEB 1.25 MG/0.5 ML VIAL.NEB NEB PRN ×3 (00:14→15:09)
[2023-01-22] MEDS: IPRATROPIUM NEB FS 0.5 MG/2.5 ML AMPUL.NEB NEB PRN ×3 (00:14→15:09)
[2023-01-22] MEDS: ACETYLCYSTEINE 10% SOLN 400 MG/4 ML VIAL NEB SCH ×4 (00:14→23:17)
[2023-01-22] MEDS: METOPROLOL TARTRATE 50 MG TABLET NG SCH ×4 (00:15→17:51)
[2023-01-22] MEDS: LEVOFLOXACIN (250MG) 250 MG TABLET PO SCH ×2 (02:11→09:08)
[2023-01-22] MEDS: BLOOD SUGAR DIAGNOSTIC 1 EACH STRIP IN SCH ×3 (05:20→18:05)
[2023-01-22] MEDS: INSULIN REGULAR, HUMAN 100 UNIT/ML 3 ML VIAL SQ PRN ×3 (05:21→18:07)
[2023-01-22] MEDS: RANOLAZINE 500 MG TAB.ER.12H PO SCH ×2 (09:00→17:00)
[2023-01-22] MEDS: PANTOPRAZOLE 40 MG/PACK PACK GT SCH (09:06)
[2023-01-22] MEDS: MULTIVITAMIN/LUTEIN/MINERALS 1 TAB GT SCH (09:06)
[2023-01-22] MEDS: MULTIVITAMINS,THERAGRAN 1 UDTAB TABLET GT SCH (09:07)
[2023-01-22] MEDS: APIXABAN 5 MG TABLET GT SCH ×2 (09:07→17:55)
[2023-01-22] MEDS: predniSONE 20 MG TABLET GT SCH (09:08)
[2023-01-22 12:41] LABS: BASOPHILS # (AUTO) 0.1 K/uL (0.0-0.2); BASOPHILS % (AUTO) 0.4 % (0.0-2.0); EOSINOPHILS % (AUTO) 0.1 % (0.0-6.0); HEMATOCRIT 31 % (39-51); HEMOGLOBIN 10.3 g/dL (13.5-17.5); LYMPHOCYTES # (AUTO) 0.4 K/uL (0.8-4.8); LYMPHOCYTES % (AUTO) 1.8 % (20.0-44.0); MEAN CORPUSCULAR HEMOGLOBIN 33 PG (26.0-33.0); MEAN CORPUSCULAR HGB CONC 33 g/dl (31.0-36.0); MEAN CORPUSCULAR VOLUME 99 fL (80-96); MONOCYTES # (AUTO) 0.5 K/uL (0.1-1.30); MONOCYTES % (AUTO) 2.3 % (2.0-12.0); NEUTROPHILS % (AUTO) 95.4 % (43.0-81.0); PLATELET COUNT (AUTO) 279 K/uL (150-450); RED BLOOD CELL COUNT(AUTO) 3.15 MIL/uL (4.5-6.0); RED CELL DISTRIBUTION WIDTH 12.9 % (11.5-15.0)
[2023-01-22 12:54] LABS: CALCIUM, SERUM 8.1 mg/dL (8.5-10.1); CREATININE 1.1 mg/dL (0.6-1.3); MAGNESIUM 2.2 mg/dL (1.8-2.4)
[2023-01-22] MEDS: ATORVASTATIN 10 MG TABLET GT SCH (17:51)
[2023-01-22] MEDS: NETARSUDIL MESYLATE EACHEYE SCH (17:52)
[2023-01-22] MEDS: LATANOPROSTENE BUNOD EACHEYE SCH (17:52)
[2023-01-22] MEDS: TAMSULOSIN 0.4 MG CAP.SR.24H PO SCH (21:08)
[2023-01-23] VITALS (9 sets, daily range): BP systolic 101–119; BP diastolic 57–66; TEMP 97.9–98.8; O2SAT 95–100
[2023-01-23] MEDS: METOPROLOL TARTRATE 50 MG TABLET NG SCH ×4 (00:15→17:51)
[2023-01-23] MEDS: INSULIN REGULAR, HUMAN 100 UNIT/ML 3 ML VIAL SQ PRN ×4 (00:17→18:06)
[2023-01-23] MEDS: BLOOD SUGAR DIAGNOSTIC 1 EACH STRIP IN SCH ×4 (00:19→18:04)
[2023-01-23 07:26] LABS: BASOPHILS % (AUTO) 0.2 % (0.0-2.0); EOSINOPHILS % (AUTO) 0.2 % (0.0-6.0); HEMATOCRIT 31 % (39-51); HEMOGLOBIN 10.4 g/dL (13.5-17.5); LYMPHOCYTES # (AUTO) 0.8 K/uL (0.8-4.8); LYMPHOCYTES % (AUTO) 4.2 % (20.0-44.0); MEAN CORPUSCULAR HEMOGLOBIN 34 PG (26.0-33.0); MEAN CORPUSCULAR HGB CONC 34 g/dl (31.0-36.0); MEAN CORPUSCULAR VOLUME 98 fL (80-96); MONOCYTES # (AUTO) 0.7 K/uL (0.1-1.30); MONOCYTES % (AUTO) 4.1 % (2.0-12.0); NEUTROPHILS # (AUTO) 16.4 K/uL (1.8-8.9); NEUTROPHILS % (AUTO) 91.3 % (43.0-81.0); PLATELET COUNT (AUTO) 307 K/uL (150-450); RED CELL DISTRIBUTION WIDTH 12.9 % (11.5-15.0)
[2023-01-23] MEDS: PANTOPRAZOLE 40 MG/PACK PACK GT SCH (07:34)
[2023-01-23 07:47] LABS: CALCIUM, SERUM 8.6 mg/dL (8.5-10.1); CARBON DIOXIDE 25 mmol/L (21-32); CHLORIDE 103 mmol/L (98-107); CREATININE 1.1 mg/dL (0.6-1.3); GLUCOSE 227 mg/dL (74-106); MAGNESIUM 2.4 mg/dL (1.8-2.4); PHOSPHORUS 3.2 mg/dL (2.5-4.9); POTASSIUM 4.2 mmol/L (3.5-5.1); SODIUM SERUM 134 mmol/L (136-145); UREA NITROGEN, BLOOD 30 mg/dL (7-18)
[2023-01-23] MEDS: ACETYLCYSTEINE 10% SOLN 400 MG/4 ML VIAL NEB SCH ×3 (07:57→23:39)
[2023-01-23] MEDS: MULTIVITAMINS,THERAGRAN 1 UDTAB TABLET GT SCH (09:39)
[2023-01-23] MEDS: RANOLAZINE 500 MG TAB.ER.12H PO SCH ×2 (09:39→17:51)
[2023-01-23] MEDS: MULTIVITAMIN/LUTEIN/MINERALS 1 TAB GT SCH (09:39)
[2023-01-23] MEDS: APIXABAN 5 MG TABLET GT SCH ×2 (09:40→17:51)
[2023-01-23] MEDS: predniSONE 20 MG TABLET GT SCH (09:41)
[2023-01-23] MEDS: GLUCERNA 1.2 1,000 ML BOTTLE GT SCH (16:03)
[2023-01-23] MEDS: ATORVASTATIN 10 MG TABLET GT SCH (17:50)
[2023-01-23] MEDS: LATANOPROSTENE BUNOD EACHEYE SCH (17:52)
[2023-01-23] MEDS: NETARSUDIL MESYLATE EACHEYE SCH (17:52)
[2023-01-23] MEDS: TAMSULOSIN 0.4 MG CAP.SR.24H PO SCH (21:43)
[2023-01-24] VITALS (9 sets, daily range): BP systolic 102–127; BP diastolic 68–72; TEMP 97.7–97.9; O2SAT 96–100
[2023-01-24] MEDS: BLOOD SUGAR DIAGNOSTIC 1 EACH STRIP IN SCH ×4 (00:09→17:19)
[2023-01-24] MEDS: INSULIN REGULAR, HUMAN 100 UNIT/ML 3 ML VIAL SQ PRN ×4 (00:11→17:21)
[2023-01-24] MEDS: METOPROLOL TARTRATE 50 MG TABLET NG SCH ×4 (05:19→17:06)
[2023-01-24] MEDS: GLUCERNA 1.2 1,000 ML BOTTLE GT SCH (05:22)
[2023-01-24 06:42] LABS: BASOPHILS % (AUTO) 0.1 % (0.0-2.0); EOSINOPHILS % (AUTO) 0.2 % (0.0-6.0); HEMATOCRIT 32 % (39-51); HEMOGLOBIN 10.5 g/dL (13.5-17.5); LYMPHOCYTES # (AUTO) 0.8 K/uL (0.8-4.8); MEAN CORPUSCULAR HEMOGLOBIN 33 PG (26.0-33.0); MEAN CORPUSCULAR HGB CONC 33 g/dl (31.0-36.0); MEAN CORPUSCULAR VOLUME 100 fL (80-96); MONOCYTES # (AUTO) 0.7 K/uL (0.1-1.30); MONOCYTES % (AUTO) 4.4 % (2.0-12.0); NEUTROPHILS # (AUTO) 15.1 K/uL (1.8-8.9); NEUTROPHILS % (AUTO) 90.3 % (43.0-81.0); PLATELET COUNT (AUTO) 310 K/uL (150-450); RED BLOOD CELL COUNT(AUTO) 3.19 MIL/uL (4.5-6.0); RED CELL DISTRIBUTION WIDTH 13.1 % (11.5-15.0); WHITE BLOOD COUNT (AUTO) 16.7 K/uL (4.3-11.0)
[2023-01-24 07:06] LABS: CALCIUM, SERUM 8.8 mg/dL (8.5-10.1); CREATININE 1.1 mg/dL (0.6-1.3); MAGNESIUM 2.3 mg/dL (1.8-2.4); POTASSIUM 4.3 mmol/L (3.5-5.1)
[2023-01-24] MEDS: PANTOPRAZOLE 40 MG/PACK PACK GT SCH (07:42)
[2023-01-24] MEDS: MULTIVITAMIN/LUTEIN/MINERALS 1 TAB GT SCH (08:19)
[2023-01-24] MEDS: predniSONE 20 MG TABLET GT SCH (08:19)
[2023-01-24] MEDS: MULTIVITAMINS,THERAGRAN 1 UDTAB TABLET GT SCH (08:19)
[2023-01-24] MEDS: RANOLAZINE 500 MG TAB.ER.12H PO SCH ×2 (08:19→16:26)
[2023-01-24] MEDS: APIXABAN 5 MG TABLET GT SCH ×2 (08:20→16:29)
[2023-01-24] MEDS: ACETYLCYSTEINE 10% SOLN 400 MG/4 ML VIAL NEB SCH ×3 (08:55→22:44)
[2023-01-24] MEDS: ATORVASTATIN 10 MG TABLET GT SCH (17:06)
[2023-01-24] MEDS: LATANOPROSTENE BUNOD EACHEYE SCH (17:07)
[2023-01-24] MEDS: NETARSUDIL MESYLATE EACHEYE SCH (17:07)
[2023-01-24] MEDS: TAMSULOSIN 0.4 MG CAP.SR.24H PO SCH (22:36)
[2023-01-25] VITALS (8 sets, daily range): BP systolic 110–124; BP diastolic 53–83; TEMP 98.1–98.2; O2SAT 95–100
[2023-01-25] MEDS: METOPROLOL TARTRATE 50 MG TABLET NG SCH ×3 (00:37→11:28)
[2023-01-25] MEDS: INSULIN REGULAR, HUMAN 100 UNIT/ML 3 ML VIAL SQ PRN ×3 (00:41→11:27)
[2023-01-25] MEDS: BLOOD SUGAR DIAGNOSTIC 1 EACH STRIP IN SCH ×3 (00:41→11:20)
[2023-01-25] MEDS: GLUCERNA 1.2 1,000 ML BOTTLE GT SCH (01:14)
[2023-01-25] MEDS: PANTOPRAZOLE 40 MG/PACK PACK GT SCH (07:44)
[2023-01-25 07:51] LABS: BASOPHILS % (AUTO) 0.3 % (0.0-2.0); EOSINOPHILS % (AUTO) 0.3 % (0.0-6.0); HEMATOCRIT 30 % (39-51); HEMOGLOBIN 10.4 g/dL (13.5-17.5); LYMPHOCYTES % (AUTO) 6.3 % (20.0-44.0); MEAN CORPUSCULAR HEMOGLOBIN 34 PG (26.0-33.0); MEAN CORPUSCULAR HGB CONC 34 g/dl (31.0-36.0); MEAN CORPUSCULAR VOLUME 99 fL (80-96); MONOCYTES # (AUTO) 0.9 K/uL (0.1-1.30); NEUTROPHILS # (AUTO) 13.4 K/uL (1.8-8.9); NEUTROPHILS % (AUTO) 87.1 % (43.0-81.0); PLATELET COUNT (AUTO) 394 K/uL (150-450); RED BLOOD CELL COUNT(AUTO) 3.04 MIL/uL (4.5-6.0); RED CELL DISTRIBUTION WIDTH 13.2 % (11.5-15.0); WHITE BLOOD COUNT (AUTO) 15.3 K/uL (4.3-11.0)
[2023-01-25 08:09] LABS: CALCIUM, SERUM 8.8 mg/dL (8.5-10.1); CARBON DIOXIDE 31 mmol/L (21-32); CHLORIDE 100 mmol/L (98-107); CREATININE 1.1 mg/dL (0.6-1.3); GLUCOSE 315 mg/dL (74-106); MAGNESIUM 2.1 mg/dL (1.8-2.4); PHOSPHORUS 4.3 mg/dL (2.5-4.9); POTASSIUM 4.7 mmol/L (3.5-5.1); SODIUM SERUM 136 mmol/L (136-145); UREA NITROGEN, BLOOD 32 mg/dL (7-18)
[2023-01-25] MEDS: MULTIVITAMIN/LUTEIN/MINERALS 1 TAB GT SCH (08:40)
[2023-01-25] MEDS: RANOLAZINE 500 MG TAB.ER.12H PO SCH (08:40)
[2023-01-25] MEDS: APIXABAN 5 MG TABLET GT SCH (08:41)
[2023-01-25] MEDS: MULTIVITAMINS,THERAGRAN 1 UDTAB TABLET GT SCH (08:41)
[2023-01-25] MEDS: predniSONE 20 MG TABLET GT SCH (08:42)
[2023-01-25] MEDS: ACETYLCYSTEINE 10% SOLN 400 MG/4 ML VIAL NEB SCH (08:58)
== END 2023-01-25 15:54 | DRG 193 ==
LOC: ER 18:40 → TELE 01-11 01:15 → TELE-TD 01-11 14:26 → TELE1 01-12 10:05 → MEDSG1 01-21 15:05
PROVIDERS: ADMIT Nurse Practitioner Family; ATTEND Internal Medicine
PROC: 0DH63UZ Insertion of Feeding Device into Stomach, Percutaneous Approach (ICD-10-PCS; principal; 2023-01-20)
DX: J15.9 Unspecified bacterial pneumonia (principal); J96.01 Acute respiratory failure with hypoxia; J44.1 Chronic obstructive pulmonary disease with (acute) exacerbation; N17.9 Acute kidney failure, unspecified; D68.59 Other primary thrombophilia; E87.20 Acidosis, unspecified; J44.0 Chronic obstructive pulmonary disease with (acute) lower respiratory infection; E22.2 Syndrome of inappropriate secretion of antidiuretic hormone; J69.0 Pneumonitis due to inhalation of food and vomit; I48.91 Unspecified atrial fibrillation; D69.6 Thrombocytopenia, unspecified; K29.70 Gastritis, unspecified, without bleeding; Z79.01 Long term (current) use of anticoagulants; Z85.46 Personal history of malignant neoplasm of prostate; Z85.820 Personal history of malignant melanoma of skin; Z90.79 Acquired absence of other genital organ(s); Z88.0 Allergy status to penicillin; Z88.8 Allergy status to other drugs, medicaments and biological substances; Z79.84 Long term (current) use of oral hypoglycemic drugs; Z79.899 Other long term (current) drug therapy; Z79.4 Long term (current) use of insulin; Z79.51 Long term (current) use of inhaled steroids; R13.10 Dysphagia, unspecified; Z20.822 Contact with and (suspected) exposure to COVID-19; E78.5 Hyperlipidemia, unspecified; E87.6 Hypokalemia; F03.90 Unspecified dementia, unspecified severity, without behavioral disturbance, psychotic disturbance, mood disturbance, and anxiety; G93.89 Other specified disorders of brain; I69.398 Other sequelae of cerebral infarction; I10 Essential (primary) hypertension; E11.65 Type 2 diabetes mellitus with hyperglycemia; M62.81 Muscle weakness (generalized); J38.3 Other diseases of vocal cords; M89.8X9 Other specified disorders of bone, unspecified site; T38.0X5A Adverse effect of glucocorticoids and synthetic analogues, initial encounter; Y92.9 Unspecified place or not applicable; Z95.0 Presence of cardiac pacemaker; Z87.891 Personal history of nicotine dependence; D72.829 Elevated white blood cell count, unspecified
CPT/HCPCS: 36415; 43246; 70450-TC; 70553-TC; 71045-TC; 74230-TC; 76536-TC; 80048-TC; 80053-TC; 80061-TC; 80076-TC; 82533; 82550-TC; 82962-TC; 83519; 83605-TC; 83735-TC; 83880; 84100-TC; 84439-TC; 84443-TC; 84484-TC; 84550-TC; 85025-TC; 85730-TC; 87040-TC; 92526; 92611-TC; 93307-TC; 94762-TC; 94799-TC; 97110-TC; 97112-TC; 97116-TC; 97530-TC; A4216; A4223; A4349; A9563; A9575; C9803; G0378; J0282; J1160; J1644; J1650; J1815; J1956; J2405; J2704; J3480; J3490; J7030; J7050; J7060; J7070